=== PATIENT | male | born 1940 | race Caucasian/White ===

== ENCOUNTER 2020-09-28 09:16 | Day surgery (SDC) | payer MEDICARE, OTHER ==
[~2020-09-28] VITALS: Ht 182.9 cm; Wt 72.7 kg
--- NOTE | ~2020-09-28 | OP ---
PATIENT NAME: NANCY FLORES MEDICAL RECORD: [id number] :40 LOCATION:[facility] ADMISSION DATE: SURGEON: LAWSON SIGALA DATE OF OPERATION: 09/28/2020 SURGEON: Lawson Sigala DPM PREOPERATIVE DIAGNOSIS: Osteomyelitis, right great toe. POSTOPERATIVE DIAGNOSIS: Osteomyelitis, right great toe. PROCEDURE: Amputation of the right great toe. ANESTHESIA: Local with monitored anesthesia care. HEMOSTASIS: Pneumatic ankle tourniquet inflated to 250 mmHg. ESTIMATED BLOOD LOSS: Minimal. MATERIALS: 3-0 Vicryl and 4-0 nylon. INJECTABLES: 20 mL of 0.5% bupivacaine plain. The patient has a history of osteomyelitis in the right great toe. This was confirmed via x-ray. He is here today for amputation of the toe. We reviewed the risks and benefits of the procedure. Complications were discussed. All questions were answered. He was appropriately consented for the above-mentioned procedure. The patient was brought to the operating room and placed on the operating table in supine position. A timeout was called with Dr. Sigala, who identified the patient, the surgery site, and the surgery to be performed. Once appropriate anesthesia was obtained, the foot was prepped and draped in the usual aseptic manner. The pneumatic ankle tourniquet was inflated to 250 mmHg around the well-padded right ankle. Attention was directed to the right great toe where a full-thickness ulceration was noted at the distal tip of the toe. Utilizing a #15 blade, a full thickness fishmouth incision was made over the hallux interphalangeal joint. This incision was deepened through soft tissue with care being taken to retract all vital neurovascular structures. All bleeders were cauterized along the way. The periosteum was then reflected from the mid shaft area of the proximal phalanx and utilizing a sagittal saw, the bone was transected from medial to lateral. The distal portion of the proximal phalanx and the entire distal phalanx and the remainder of the toe were passed from the field and sent to pathology. The surgical site was inspected for any remaining evidence of osteomyelitis or other infection and none was noted. The bone was noted to be hard and firm. Surgical site was irrigated with copious amounts of normal sterile saline via bulb syringe. The surgical site was then reinvestigated for any remaining nonviable infected tissue, none was noted. The subq was then reapproximated and coapted using 3-0 Vicryl. The skin was then reapproximated and coapted using 4-0 nylon. Dressing consisting of OPERATIVE REPORT [id number] NANCY FLORES Xeroform, 4 x 4's, Kerlix, and an Mike bandage was applied to the right foot, the pneumatic ankle tourniquet was inflated and capillary fill time was immediate to all remaining digits of the right foot. The patient was discharged home with instructions to elevate the right foot. He was provided with a prescription for [place] 5/325 and Keflex 500 mg. He will follow up with me next Thursday. He has my cell phone number for any after hour difficulties and there were no complications with this procedure. TRANSINT:[id number] Voice Confirmation ID: [id number] DOCUMENT ID: [id number] LAWSON SIGALA CC: [id number] DICTATION DATE: 09/28/20 1525 SECURITIES ADVISER: 09/29/20 0102 [facility] 09/28/20 [id number] [place] [address]
[~2020-09-28 09:16] MED LIST: AZULFIDINE500 MG PO; CENTRUM MEN'S1 EACH PO; HYDROCODONE-APA1 TAB PO; PLAQUENIL200 MG PO; PREDNISONE2.5 MG PO; PROBIOTIC1 EAC1 PO; PROTONIX40 MG PO; STERAPRED DS 1210 MG PO
[2020-09-28 09:57] LABS: ANION GAP 9.5 mmol/L (8-16); CALCIUM 8.3 mg/dL (8.5-10.1); CARBON DIOXIDE 28.4 mmol/L (21.0-32.0); CREATININE - SERUM 1.1 mg/dL (0.6-1.3); POTASSIUM - SERUM 3.9 mmol/L (3.5-5.1)
[2020-09-28 10:02] LABS: BASOPHILS 0.4 % (0-2); EOSINOPHILS 1.3 % (0-7); HEMATOCRIT 38.5 % (42.0-54.0); HEMOGLOBIN 12.6 g/dL (13.5-17.5); IMMATURE GRANULOCYTES 0.6 % (0-5); MCHC 32.7 g/dL (31.0-37.0); MCV 91.7 fL (80.0-100.0); MEAN PLATELET VOLUME 8.8 fL (7.4-10.4); MONOCYTES 10.3 % (2-11); NEUTROPHIL ABS# 8.88 10x3/uL (1.78-5.38); NEUTROPHILS 69.4 % (40-80); RDW 13.5 % (11.5-14.5); WBC 12.8 10x3/uL (4.8-10.8)
[2020-09-28 10:03] LABS: PLATELET COUNT 278 10x3/uL (130-400)
[2020-09-28] MEDS ORDERED: TRAZODONE HCL50 MG PO (10:27)
[2020-09-28 10:30] VITALS: BP 125/59; Ht 182.9 cm; Wt 72.7 kg
--- NOTE | 2020-09-28 15:27 | NUR ---
PT DENIES PAIN. STATES HE'S READY TO GO HOME. IV D/C'D WITH CANNULA INTACT, PRESSURE HELD AND DRSG PLACED. DISCHARGE INSTRUCTIONS GIVEN AND BOTH PT AND VERBALIZED AN UNDERSTANDING.
== END 2020-09-28 14:44 | disposition home or self-care (01) ==
LOC: D.OPS 09:16
PROVIDERS: Anesthesiology; ATTEND Podiatrist
DX: M86.171 Other acute osteomyelitis, right ankle and foot (principal)